=== PATIENT | female | born 1930 | race Caucasian/White ===

== ENCOUNTER 2017-06-18 11:12 | Observation (INO) | payer OTHER ==
[~2017-06-18] VITALS: Ht 167.6 cm; Wt 59.0 kg
[~2017-06-18 11:12] MED LIST: ATOR20TA PO; ATOR20TA50 PO; DILT120C36 PO; LISI-646 PO; METF-370 PO; OFLOXACIN; ONDA4SOL2 PO; OXYB5TAB62 PO; [UNRECOGNIZED DRUG - CODE]
[2017-06-18] MEDS ORDERED: SODIUM CHLORIDE 0.9% 1,000 ML IVB ONE (17:54)
[2017-06-18 18:54] LABS: Basophils # (auto) 0 uL; Basophils % (auto) 0.3 % (0.0-2.0); CONDITION Y; Eosinophils # (auto) 0 uL; Eosinophils % (auto) 0.1 % (0.0-7.0); Hematocrit 39.8 % (36.0-46.0); Hemoglobin 13.2 g/dL (12.2-16.2); Lymphocytes # (auto) 1.1 uL; Lymphocytes % (auto) 6.8 % (10.0-50.0); Mean Corpuscular Hemoglobin 30.3 pg (28.0-32.0); Mean Corpuscular Hgb Conc. 33.3 g/dL (32.0-36.0); Mean Corpuscular Volume 91.1 fL (80.0-100.0); Mean Platelet Volume 11.2 fL (7.4-10.4); Monocytes # (auto) 1.1 uL; Monocytes % (auto) 7.1 % (0.0-12.0); Neutrophils # (auto) 13.6 uL; Neutrophils % (auto) 85.7 % (37.0-80.0); Platelet Count (auto) 247 10^3/uL (140-450); Red Cell Distribution Width 13.9 % (11.6-16.0); SUSPECT SEE PRINTOUT; White Blood Cell 15.9 10^3/uL (4.4-10.8)
[2017-06-18] MEDS ORDERED: ONDANSETRON HCL 4 MG/2 ML VIAL IV ONE (19:00)
[2017-06-18] MEDS ORDERED: MORPHINE SULF INJ 2 MG/ML SYRINGE 1ML IV ONE (19:00)
[2017-06-18 19:06] LABS: Partial Thromboplastin Time 23.2 sec (22.64-33.71); Prothrombin Time 10.9 sec (9.37-12.3)
[2017-06-18 19:16] LABS: Albumin 3.8 g/dL (3.4-5.0); Alkaline Phosphatase 99 U/L (45-117); Anion Gap 10 (5-15); Aspartate Aminotransferase 15 U/L (15-37); BUN/Creatinine Ratio 15.6; Bilirubin, Total 0.7 mg/dL (0.2-1.0); Blood Urea Nitrogen 12 mg/dL (7-18); Calcium 8.8 mg/dL (8.5-10.1); Carbon Dioxide 24 mmol/L (21-32); Chloride 103 mmol/L (98-107); GFR African American 91 mL/min; GFR Non-African American 75 mL/min; Glucose 159 mg/dL (74-106); Magnesium 2.1 mg/dL (1.6-2.6); Potassium 3.8 mmol/L (3.5-5.1); Sodium 137 mmol/L (136-145); Total Protein 8.1 g/dL (6.4-8.2)
[2017-06-18] MEDS ORDERED: ATOR20TA PO (19:37)
[2017-06-18] MEDS ORDERED: ATE50T PO (19:37)
[2017-06-18] MEDS ORDERED: AML5T PO (19:37)
[2017-06-18] MEDS ORDERED: LEV50T PO (19:37)
[2017-06-18] MEDS ORDERED: METF-370 PO (19:37)
[2017-06-18 22:18] VITALS: BP 138/65
== END 2017-06-18 22:44 | disposition short-term general hospital (02) | DRG 536 ==
LOC: EDBD 11:12 → ER 11:15 → OVERFLOW 17:55 → ER 22:44
PROVIDERS: ADMIT Family Medicine; ATTEND Family Medicine
DX: S72.002A Fracture of unspecified part of neck of left femur, initial encounter for closed fracture (principal); S83.92XA Sprain of unspecified site of left knee, initial encounter; I25.10 Atherosclerotic heart disease of native coronary artery without angina pectoris; E11.9 Type 2 diabetes mellitus without complications; I10 Essential (primary) hypertension; E78.5 Hyperlipidemia, unspecified; F32.9 Major depressive disorder, single episode, unspecified; Z86.73 Personal history of transient ischemic attack (TIA), and cerebral infarction without residual deficits; W08.XXXA Fall from other furniture, initial encounter; Y93.89 Activity, other specified; Y92.89 Other specified places as the place of occurrence of the external cause; Y99.8 Other external cause status
CPT/HCPCS: 36415; 70450; 71010; 72192; 73560; 80053; 82962; 83735; 84484; 85025; 85610; 85730; 93005; 96361; 96374; 96375; G0378; J2270; J2405; J7030